=== PATIENT | male | born 1965 | race Caucasian/White ===

== ENCOUNTER 2020-01-14 20:46 | Emergency (ER) | payer BC, SELFPAY ==
[2020-01-14 21:15] VITALS: BP 129/91; PULSE 84; RESP 20; TEMP 36.8; O2SAT 97; BMI 20.2
--- NOTE | 2020-01-14 21:22 | HMH.EDUTC ---
[facility] [place] Clinical Impression: COVID-19 virus test result unknown Tick bite Qualifiers: Encounter type: initial encounter Qualified Code(s): W57.XXXA - Bitten or stung by nonvenomous insect and other nonvenomous arthropods, initial encounter Disposition: Home, Self-Care Condition on Discharge: Good Instructions: Preventing the Spread of Coronavirus Discharge Instructions, Protect Yourself from Tickborne Illnesses, How to Remove a Tick Prescriptions: Minocycline HCl [Minocycline HCl 100mg Tab*] 100 mg PO BID 14 Days #28 tab Prescription Printed Referrals: Yomi Ko MD [Primary Care Provider] - Time of Disposition: 21:37 Medical Decision Making - Jonathon Inquiry Pt receiving controlled substance: No Vital Signs: 01/14/20 21:15 Temperature 98.2 F Temperature Source Oral Pulse Rate [Right Brachial] 84 Respiratory Rate 20 Blood Pressure [Right Arm] 129/91 H Blood Pressure Mean [Right Arm] 103 Blood Pressure Source [Right Arm] Automatic Cuff Blood Pressure Position [Right Arm] Sitting 02 Sat by Pulse Oximetry 97 Oxygen Delivery Method Room Air Orders (Tests/Meds): ED MEDICATIONS Discontinued Medications Generic Name Dose Route Start Last Admin Trade Name Freq PRN Reason Stop Dose Admin Doxycycline Hyclate 100 mg 01/14/20 21:28 01/14/20 21:30 Vibra-Tab 100mg Tablet PO 01/14/20 21:29 100 mg ONCE ONE Administration Protocol Minocycline HCl 100 mg 01/14/20 21:23 01/14/20 21:29 Minocin 100mg Capsule PO 01/14/20 21:24 Not Given ONCE ONE Protocol ORDERS Category Date Time Status SARS-CoV-2, AMANDA Stat Lab 01/14/20 21:00 Received - Physician Consults Physician Consulted: mercedes Time: 21:35 Comment/Response: pt has tick bite and c/o fever, chills and body aches ok to start on antibiotics? and follow up in office this [place] [facility] [place] - General Chief complaint: [facility] Stated complaint: covid test/covid symptoms Time Seen by Provider: 01/14/20 21:22 Mode of Arrival: Ambulatory Source of Information: Patient Limitations: No Limitations Description of Symptoms (Recalled from Triage Doc. by RN): PATIENT REQUESTING COVID TEST. C/O BODY ACHES, LOW-GRADE FEVER, AND NAUSEA SINCE NATALIA. ALSO C/O TICK BITE TO LEFT LOWER LEG WITH SMALL AMOUNT OF REDNESS NOTED HEENT Symptoms (Recalled from RN notes): No Resp Symptoms (Recalled from RN notes): No Skin Symptoms (Recalled from RN notes): Yes MS Symptoms (Recalled from RN notes): No Functional Status (Recalled from RN notes): WNL - History of Present Illness Provider Complaint: 54 yr old male presnts for fever, body aches, chills,and pt states he has a tick bite since that started as a red raised area and now red with scab area. pt would like a covid test. pt states he was taking amoxicillin he had in left. - Related Data Previous Rx's Medication Instructions Recorded Minocycline HCl [Minocycline HCl 100 mg PO BID 14 Days #28 tab 01/14/20 100mg Tab*] Allergies Allergy/AdvReac Type Severity Reaction Status Date / Time No Known Allergies Allergy Verified 05/29/19 07:45 - Worker's Comp Is this a Worker's Comp case?: No [facility] History - Hepatitis A Screen Drug use history?: No High risk sexual behaviors?: No History of sexually transmitted infection?: No Currently employed?: No Childcare worker?: No Do you have indoor plumbing?: Yes Do you have electricity?: Yes Attestation statement:: This patient has been screened for Hepatitis A risk factors. I have reviewed the patient's past medical history: Yes Medical History: Denies:: Cancer, Diabetes Mellitus Type 1, Diabetes Mellitus Type 2, Internal Pacemaker, MRSA, Seizures Other Surgeries: No: Pacemaker Amputation: No Fractures: No - Social History Alcohol Intake: current Substance Use Type: denies use Occupational Status: other Housing: house Household Members: spouse Family Hx:: Hyperlipidemia, Hypertensi
[2020-01-14 21:44] VITALS: BP 129/91; PULSE 84; RESP 20; TEMP 36.8; O2SAT 97
[2020-01-16 14:19] LABS: Covid-19 Nasal PCR Sendout Lex Not Detected
== END 2020-01-14 21:44 | disposition home or self-care (01) ==
PROVIDERS: Emergency Provider Nurse Practitioner Family; PCP Family Medicine
DX: S80.862A Insect bite (nonvenomous), left lower leg, initial encounter (principal); W57.XXXA Bitten or stung by nonvenomous insect and other nonvenomous arthropods, initial encounter; Z20.828 Contact with and (suspected) exposure to other viral communicable diseases
CPT/HCPCS: 99201; U0004

== ENCOUNTER → 2020-02-01 11:16 | Outpatient (POV) | payer BC, SELFPAY | PROVIDERS: Visit Provider Audiologist | DX: Z00.00 Encounter for general adult medical examination without abnormal findings (principal) ==

== ENCOUNTER → 2020-04-12 12:40 | Outpatient (CLI) | payer BC, SELFPAY ==
[2020-04-12 12:49] LABS: MANUAL DIFFERENTIAL MANUAL DIFFERENTIAL (MANUAL DIFF)
[2020-04-12 13:03] LABS: Basophils # 0.1 K/mm3 (0-0.2); Basophils % 0.2 % (0.1-2.0); Eosinophils # 0.1 K/mm3 (0.0-0.4); Eosinophils % 0.3 % (0.1-12.0); Hematocrit 44.3 % (42.0-52.0); Lymphocytes # 1.4 K/mm3 (0.7-4.5); Lymphocytes % 3.6 % (10-50); Mean Corpuscular HGB Conc 31.7 g/dL (31.8-35.4); Mean Corpuscular Hemoglobin 29.5 pg (27.0-31.2); Mean Corpuscular Volume 93.2 fl (80-94); Mean Platelet Volume 7.4 fl (7.4-10.4); Monocytes # 0.7 K/mm3 (0.1-1.0); Monocytes % 1.9 % (1.7-9.3); Neutrophils # 36.8 K/mm3 (1.8-7.8); Platelet Count 331 K/mm3 (142-424); Red Blood Count 4.75 M/mm3 (4.60-6.20); Red Cell Distribution Width 12.8 % (11.5-17.5); White Blood Count 39.1 K/mm3 (4.8-10.8)
[2020-04-12 13:08] LABS: Lymphocytes % 7 % (10-50); Neutrophils % 92 % (42-76); Total Cells Counted 100
[2020-04-12 13:09] LABS: Giant Platelets 1+; Platelet Estimate Normal; RBC Morphology Normal
[2020-04-14 12:48] LABS: Peripheral Smear Review Scanned Result
== END ==
LOC: LAB 12:41 → LAB.DROPOF 12:44
PROVIDERS: Visit Provider Family Medicine
DX: D72.829 Elevated white blood cell count, unspecified (principal)
CPT/HCPCS: 85007; 85014; 85018; 85048; 85049

== ENCOUNTER → 2022-02-04 09:20 | Outpatient (CLI) | payer BC, SELFPAY ==
--- NOTE | 2022-02-04 | US_ITS ---
FINAL REPORT CLINICAL HISTORY: RUQ PAIN FINDINGS: ULTRASOUND RIGHT UPPER QUADRANT Sonographic imaging of the right upper quadrant was obtained. The pancreas is partially obscured. There is a small relatively hyperechoic focus in the left lobe of the liver measuring less than 1 cm may represent a small hemangioma. There is a minimal amount of sludge within the gallbladder with no evidence of gallstones. There is no gallbladder wall thickening. There is no biliary ductal dilatation. The common duct is normal at 2 mm. Limited images of the right kidney are unremarkable. IMPRESSION: Hyperechoic focus in the left liver lobe may represent a small hemangioma. Reviewed, Interpreted and Dictated by Lyle Fulton MD Transcribed by Rica Cantor Authenticated and [facility]
== END ==
PROVIDERS: PCP Family Medicine; Visit Provider Family Medicine
DX: R10.11 Right upper quadrant pain (principal)
CPT/HCPCS: 76705

== ENCOUNTER → 2022-02-13 10:16 | Outpatient (CLI) | payer BC, SELFPAY ==
--- NOTE | 2022-02-13 10:20 | NM_ITS ---
FINAL REPORT TECHNIQUE: The patient was injected with 8.15 mCi of technetium 99m Choletec subsequently Ensure was ingested. Images of the abdomen were obtained for one hour. CLINICAL HISTORY: GALLBLADDER SLUDGE rt side abd pain x 1 month with swelling 10:35 am 8.15 mci tc choletec injected into lt ant pt drank a ensure and was imaged for a hour afterwards FINDINGS: Hepatic uptake is normal. There is bile duct and small bowel activity at 5 minutes. The gallbladder is visualized at 20 minutes. Post Ensure images render an ejection fraction of 37 %. IMPRESSION: Normal hepatobiliary scan. Normal ejection fraction. Reviewed, Interpreted and Dictated by Jacinto Saravia III, MD Transcribed by Juaquin Mayer Authenticated and [facility]
== END ==
PROVIDERS: PCP Family Medicine; Visit Provider Family Medicine
DX: R10.9 Unspecified abdominal pain (principal); K82.8 Other specified diseases of gallbladder
CPT/HCPCS: 78226; A9537

== ENCOUNTER → 2022-02-26 11:06 | Outpatient (CLI) | payer BC, SELFPAY ==
[2022-02-26 11:18] LABS: MANUAL DIFFERENTIAL MANUAL DIFFERENTIAL (MANUAL DIFF)
[2022-02-26 11:41] LABS: Basophils # 0.1 K/mm3 (0-0.2); Basophils % 1.1 % (0.1-2.0); Eosinophils # 0.1 K/mm3 (0.0-0.4); Eosinophils % 1.6 % (0.1-12.0); Hematocrit 43.9 % (42.0-52.0); Hemoglobin 14.3 g/dL (14.1-18.0); Lymphocytes # 1.8 K/mm3 (0.7-4.5); Lymphocytes % 33.1 % (10-50); Mean Corpuscular HGB Conc 32.5 g/dL (31.8-35.4); Mean Corpuscular Volume 95.5 fl (80-94); Mean Platelet Volume 7.8 fl (7.4-10.4); Monocytes # 0.5 K/mm3 (0.1-1.0); Monocytes % 8.4 % (1.7-9.3); Neutrophils % 55.8 % (37.0-80.0); Platelet Count 303 K/mm3 (142-424); Red Cell Distribution Width 13.2 % (11.5-17.5); White Blood Count 5.4 K/mm3 (4.8-10.8)
[2022-02-26 12:23] LABS: Chloride 103 mmol/L (98-107)
[2022-02-26 12:24] LABS: Potassium 4.9 mmoL/L (3.5-5.1); Sodium 140 mmol/L (136-145)
[2022-02-26 12:26] LABS: Alanine Aminotransferase 20 U/L (12-78); Alkaline Phosphatase 134 U/L (38-126); Amylase 100 U/L (30-110); Anion Gap 12.9 mEq/L (5-15); Aspartate Amino Transferase 28 U/L (17-59); Bilirubin,Total < 0.1 mg/dl (0.2-1.3); Blood Urea Nitrogen 17 mg/dl (9-20); Carbon Dioxide 29 mmol/L (22.0-30.0); Estimated Glomerular Filt Rate 88 ml/min (>60); GFR (African American) 106 ML/MIN (>60)
[2022-02-26 12:27] LABS: Albumin Level 4.5 g/dl (3.5-5.0); Albumin/Globulin Ratio 1.5 (1.1-1.8); Calcium 9.3 mg/dl (8.4-10.2); Glucose 94 mg/dl (74-100); Lipase 119 U/L (23-300); Total Protein,Serum 7.5 g/dl (6.3-8.2)
[2022-02-26 12:45] LABS: Lymphocytes % 38 % (10-50); Monocytes % 8 % (2-9); Neutrophils % 54 % (42-76); Platelet Estimate Normal; RBC Morphology Normal; Total Cells Counted 100
== END ==
PROVIDERS: PCP Family Medicine; Visit Provider Surgery
DX: R10.9 Unspecified abdominal pain (principal)
CPT/HCPCS: 36415; 80053; 82150; 83690; 85007; 85014; 85018; 85048; 85049

== ENCOUNTER → 2022-03-03 10:23 | Outpatient (CLI) | payer BC, SELFPAY ==
--- NOTE | 2022-03-03 10:24 | CT_ITS ---
FINAL REPORT CLINICAL HISTORY: Abdominal pain FINDINGS: Technique: The patient was injected with intravenous contrast. Oral contrast was administered. Axial images through the abdomen and pelvis were performed. This study was performed with techniques to keep radiation doses as low as reasonably achievable (ALARA). Individualized dose reduction techniques using automated exposure control or adjustment of mA and/or kV according to the patient's size were employed. Abdomen: The lung bases are clear. The liver is normal in size and attenuation. The gallbladder is present. There are calcified granulomas in the spleen. The adrenals are normal. The pancreas is unremarkable. The kidneys enhance appropriately. The aorta is normal in caliber. There is no free fluid or adenopathy. Pelvis: The appendix is normal. The urinary bladder is unremarkable. There is no free fluid or adenopathy. IMPRESSION: No acute intra-abdominal or intrapelvic abnormality. Reviewed, Interpreted and Dictated by Lyle Fulton MD Transcribed by Rica Cantor Authenticated and [facility]
== END ==
PROVIDERS: PCP Family Medicine; Visit Provider Surgery
DX: R10.9 Unspecified abdominal pain (principal)
CPT/HCPCS: 74177; Q9967

== ENCOUNTER → 2022-03-11 10:39 | Outpatient (CLI) | payer BC, SELFPAY | PROVIDERS: PCP Family Medicine; Visit Provider Surgery | DX: Z01.812 Encounter for preprocedural laboratory examination (principal); Z20.822 Contact with and (suspected) exposure to COVID-19; Z13.810 Encounter for screening for upper gastrointestinal disorder | CPT/HCPCS: C9803; U0003; U0005 ==

== ENCOUNTER 2022-03-13 12:30 | Day surgery (SDC) | payer BC, SELFPAY ==
[2022-03-11 10:28] VITALS: BMI 20.9
[2022-03-13 12:54] VITALS: BP 137/79; PULSE 59; RESP 18; TEMP 36.6; O2SAT 99
--- NOTE | 2022-03-13 13:56 | EXP.ANES.CKL ---
[facility] Medical History No significant past medical history Surgical History No significant past surgical history Family History Other No significant family history Social History Smoking Status: Never smoker alcohol intake: current substance use type: denies use current occupational status: other Travel in the last 8 weeks: None household members: spouse housing: house current occupational exposures/hazards: Yes caffeine: No [facility] Anesthesia Checklist Patient Identification Patient Identification: Arm Band Structural Data Admitted From: Home Planned Operative Procedure/s: EGD Consent for Planned Operative Procedure(s) Verified: Yes Verified Documents: Surgical Consent and History and Physical NPO Status Verified Time NPO: 00:00 Additional verifications Anesthesia Reactions: No Airway Assessment C-Spine Mobility Assessed: Yes TMJ Mobility Assessed: Yes Dentition: Good Dentition Neurological Assessment Level of Consciousness: Awake and Alert Anesthesia Plan Anesthesia Risk discussed: Yes Anesthesia Plan: Verified ASA Class: I Anesthesia Type: MAC
[2022-03-13 14:06] VITALS: O2SAT 99
--- NOTE | 2022-03-13 14:19 | HMH.SCOPE ---
Procedure: Date: 03/13/22 Patient Date of :: 1965 Procedure Performed:: Esophagogastroduodenoscopy with biopsies Indications:: Patient presents for EGD. Patient is a pleasant 56-year-old male originally referred by Dr. Yomi Ko for possible gallbladder and seen in the office initially on 02/26/2022. He describes symptoms of mild right upper quadrant discomfort consistent with annoyance for duration of a couple of months. He had some abdominal distention and bloating. He was seen in his primary care provider's office and was found to have some right upper quadrant tenderness. He does state that this may be somewhat related to eating although he has been watching his diet and still does have some symptoms. He states that he often goes several days without any symptoms. He underwent gallbladder ultrasound on 01/31/2022 which was unremarkable for gallstones but revealed a hyperechoic focus in the left lobe of the liver which is felt to be possibly a small hemangioma. He had a HIDA scan performed on 02/13/2022 which reveals normal hepatobiliary scan with normal ejection fraction of 37%. This was done without CCK but with ingestion of Ensure. He states that the symptoms sometimes occur after drinking coffee in the morning. However, they are often relieved with eating. They are sporadic. Due to the equivocal findings on his gallbladder work-up and somewhat atypical symptoms I had him undergo CT scan which was negative for any acute pathology. I also had him undergo blood work including CBC, CMP, amylase, lipase. This is all unremarkable. Given his atypical symptoms I would not pursue gallbladder immediately.? It is possible HIDA scan with CCK could be completely normal.? Often his symptoms are actually relieved with eating.? He may have upper GI pathology.? Therefore plan was made for EGD with biopsies initially.? If this is all unremarkable then the gallbladder may be reconsidered. Performing Provider:: Jacinto Austin MD Referring Provider:: Yomi Ko MD Sedation:: MAC sedation Procedure:: Patient history was obtained and appropriate physical examination was performed. Patient's medications and allergies were reviewed. Informed consent was obtained after explaining the benefits, alternatives, and risks of the procedure including, but not limited to, bleeding, perforation, missed lesions, and adverse reaction to anesthesia medications. Patient was transported to endoscopy procedure room. Patient was connected to monitoring devices. Throughout the procedure the patient's blood pressure, pulse, and oxygen saturations were monitored continuously. Patient identification and planned procedure were verified by the staff. Olympus endoscope was inserted via the oropharynx. Esophagus was cannulated. Overall esophagus appeared normal. Gastroesophageal junction was encountered at approximately 40 cm from the incisors. There were findings possibly consistent with Handy's esophagus focally at the gastroesophageal junction. Stomach was cannulated and insufflated. Retroflexion revealed no evidence of any appreciable hiatal hernia. There was some mild diffuse nonerosive gastritis. Gastric biopsy was obtained. The pylorus was traversed. Duodenal bulb and duodenal sweep appeared unremarkable. Biopsy was obtained within the duodenal bulb. Endoscope was withdrawn to the distal esophagus and several biopsies were obtained at the gastroesophageal junction to evaluate for Handy's esophagus. Stomach was desufflated and the endoscope was withdrawn. Findings:: Gastroesophageal junction at 40 cm Possible focal very short segment of Handy's esophagus at gastroesophageal junction Very mild diffuse nonerosive gastritis, biopsied Normal appearing duodenal bulb, biopsied Recommendations:: Plan to follow-up on histopathology. To treat if necessary. However, given the relatively unremarkable appearance on upper endoscopy consideration
[2022-03-13 14:20] VITALS: BP 95/61; PULSE 56; RESP 16; TEMP 36.3; O2SAT 96
[2022-03-13 14:30] VITALS: BP 113/79; PULSE 59; RESP 16; O2SAT 99
[2022-03-13 14:40] VITALS: BP 122/79; PULSE 60; RESP 16; O2SAT 100
[2022-03-13 14:50] VITALS: BP 136/88; PULSE 58; RESP 16; O2SAT 100
== END 2022-03-13 14:50 | disposition home or self-care (01) ==
PROVIDERS: PCP Family Medicine; Visit Provider Surgery
PROC: 0DJ08ZZ Inspection of Upper Intestinal Tract, Via Natural or Artificial Opening Endoscopic (ICD-10-PCS; CPT 43235; principal; 2022-03-13 13:30)
DX: R10.11 Right upper quadrant pain (principal); K29.70 Gastritis, unspecified, without bleeding
CPT/HCPCS: 43239; 88305

== ENCOUNTER → 2022-03-16 15:29 | Outpatient (CLI) | payer BC, SELFPAY ==
--- NOTE | 2022-03-16 15:39 | ECG_ITS ---
APPROVED REPORT Exam: Resting ECG HR:62 bpm ECG Measurements Heart Rate 62 AXES WI 127 P 69 QRSd 116 QRS 73 QT 396 T 57 QTc 400 Conclusion SINUS RHYTHM INCOMPLETE RIGHT BUNDLE BRANCH BLOCK [90+ ms QRS DURATION, TERMINAL R IN V1/V2, 40+ ms S IN I/aVL/V4/V5/V6] POSSIBLE LEFT VENTRICULAR HYPERTROPHY [VOLTAGE CRITERIA PLUS LAE OR QRS WIDENING] ABNORMAL ECG UNCONFIRMED REPORT Electronically signed by : Aly Selby MD 03/16/2022 20:04:51
[2022-03-16 16:32] LABS: Basophils # 0.1 K/mm3 (0-0.2); Basophils % 1.7 % (0.1-2.0); Eosinophils # 0.1 K/mm3 (0.0-0.4); Eosinophils % 1.2 % (0.1-12.0); Hematocrit 44.1 % (42.0-52.0); Hemoglobin 14.8 g/dL (14.1-18.0); Lymphocytes % 31.2 % (10-50); Mean Corpuscular HGB Conc 33.6 g/dL (31.8-35.4); Mean Corpuscular Hemoglobin 31.8 pg (27.0-31.2); Mean Corpuscular Volume 94.4 fl (80-94); Mean Platelet Volume 7.9 fl (7.4-10.4); Monocytes # 0.6 K/mm3 (0.1-1.0); Monocytes % 9.4 % (1.7-9.3); Neutrophils # 3.7 K/mm3 (1.8-7.8); Neutrophils % 56.6 % (37.0-80.0); Platelet Count 310 K/mm3 (142-424); Red Blood Count 4.68 M/mm3 (4.60-6.20); Red Cell Distribution Width 13.2 % (11.5-17.5); White Blood Count 6.5 K/mm3 (4.8-10.8)
[2022-03-16 17:16] LABS: D-Dimer 0.33 ug/mL (0.0-0.5)
[2022-03-16 17:37] LABS: Chloride 98 mmol/L (98-107); Potassium 4.4 mmoL/L (3.5-5.1); Sodium 139 mmol/L (136-145)
[2022-03-16 17:40] LABS: Alanine Aminotransferase 23 U/L (12-78); Albumin Level 4.6 g/dl (3.5-5.0); Albumin/Globulin Ratio 1.5 (1.1-1.8); Alkaline Phosphatase 108 U/L (38-126); Anion Gap 13.4 mEq/L (5-15); Aspartate Amino Transferase 33 U/L (17-59); Blood Urea Nitrogen 14 mg/dl (9-20); Calcium 9.5 mg/dl (8.4-10.2); Carbon Dioxide 32 mmol/L (22.0-30.0); Estimated Glomerular Filt Rate 88 ml/min (>60); GFR (African American) 106 ML/MIN (>60); Glucose 95 mg/dl (74-100); Total Protein,Serum 7.6 g/dl (6.3-8.2)
[2022-03-16 17:41] LABS: Bilirubin,Total 0.1 mg/dl (0.2-1.3)
[2022-03-16 17:45] LABS: NT Pro Brain Natriuretic Pep. 32.6 pg/mL (0-125)
[2022-03-16 17:49] LABS: Troponin I < 0.01 ng/ml (0.00-0.034)
== END ==
PROVIDERS: PCP Family Medicine; Visit Provider Family Medicine
DX: R06.02 Shortness of breath (principal); R10.11 Right upper quadrant pain
CPT/HCPCS: 36415; 80053; 83880; 84484; 85025; 85378; 93005

== ENCOUNTER → 2022-06-16 11:31 | Outpatient (CLI) | payer BC, SELFPAY ==
[2022-06-16 14:04] LABS: Alanine Aminotransferase 32 U/L (12-78); Albumin Level 4.8 g/dl (3.5-5.0); Albumin/Globulin Ratio 1.7 (1.1-1.8); Alkaline Phosphatase 112 U/L (38-126); Anion Gap 15.2 mEq/L (5-15); Aspartate Amino Transferase 32 U/L (17-59); Bilirubin,Total 0.5 mg/dl (0.2-1.3); Blood Urea Nitrogen 27 mg/dl (9-20); Calcium 9.4 mg/dl (8.4-10.2); Carbon Dioxide 26 mmol/L (22.0-30.0); Chloride 102 mmol/L (98-107); Estimated Glomerular Filt Rate 78 ml/min (>60); GFR (African American) 94 ML/MIN (>60); Globulin 2.9 g/dL (1.3-3.2); Glucose 85 mg/dl (74-100); Potassium 4.2 mmoL/L (3.5-5.1); Sodium 139 mmol/L (136-145); Total Protein,Serum 7.7 g/dl (6.3-8.2)
[2022-06-16 14:24] LABS: Free Thyroxine Index 2.7 ug/dL (5.93-13.13); T4 (Thyroxine) 7.6 ug/dl (5.53-11.0); Triiodothryronine (T3) Uptake 35 % (23.5-40.5)
[2022-06-16 14:37] LABS: Thyroid Stimulating Hormone 1.42 uIU/mL (0.465-4.68)
[2022-06-17 17:22] LABS: Calcium, Ionized 5.6 mg/dL (4.5-5.6)
[2022-06-21 06:43] LABS: Testosterone,Free 13.2 pg/mL (7.2-24.0)
[2022-06-23 23:43] LABS: 1,25 Dihydroxy Vitamin D 87 pg/mL (.); 1,25-Dihydroxy, Vitamin D-2 <10 pg/mL (.); 1,25-Dihydroxy, Vitamin D-3 86 pg/mL (.)
[2022-06-24 23:06] LABS: PTH Related Peptide < 2.0
== END ==
PROVIDERS: PCP Family Medicine; Visit Provider Surgery
DX: R10.11 Right upper quadrant pain (principal); E67.3 Hypervitaminosis D; R53.83 Other fatigue
CPT/HCPCS: 36415; 80053; 82330; 82397; 82652; 84402; 84403; 84436; 84443; 84479

== ENCOUNTER → 2022-06-25 10:23 | Outpatient (CLI) | payer BC, SELFPAY ==
--- NOTE | 2022-06-25 10:32 | NM_ITS ---
FINAL REPORT CLINICAL HISTORY: Right upper quad pain 10:40 am 7.90 mci tc myoview 11:50 am 1.4 mcg of cck injected into lt ant no pain during cck 02/04/22 neg gb u/s FINDINGS: Sequential anterior projection images of the abdomen were obtained after the intravenous injection of 7.90 mCi technetium 99m Choletec. There is normal uptake of radiotracer by the liver. The bile ducts are visualized by 5 minutes. Gallbladder activity is seen by 35 minutes. Bowel activity is noted by 5 minutes. After 1 hour, 1.4 ?g of CCK was injected intravenously for calculation of gallbladder ejection fraction. The gallbladder ejection fraction is 68 %, which is within normal limits. IMPRESSION: No evidence of cystic duct or bile duct obstruction. Normal gallbladder ejection fraction of 68 %. Reviewed, Interpreted and Dictated by Jacinto Saravia III, MD Transcribed by Sara Coto Authenticated and [facility]
== END ==
PROVIDERS: PCP Family Medicine; Visit Provider Surgery
DX: R10.11 Right upper quadrant pain (principal)
CPT/HCPCS: 78227; A9537; J2805

== ENCOUNTER → 2022-10-24 09:30 | Outpatient (CLI) | payer BC, SELFPAY ==
[2022-10-28 15:10] LABS: Pancreatic Elastase, Fecal 185 (>200)
== END ==
PROVIDERS: PCP Family Medicine; Visit Provider Nurse Practitioner Family
DX: R10.11 Right upper quadrant pain (principal); R14.3 Flatulence
CPT/HCPCS: 82656

== ENCOUNTER 2022-10-28 16:05 | Emergency (ER) | payer OTHER, BC, SELFPAY ==
[2022-10-28 16:05] VITALS: BP 158/79; PULSE 70; RESP 18; TEMP 36.6; O2SAT 99; BMI 21.3
--- NOTE | 2022-10-28 17:02 | PC.NURSE ---
Dog bite for successfully faxed.
--- NOTE | 2022-10-28 17:12 | HMH.EDGENADL ---
Discharge Plan Disposition Patient Disposition: Home, Self-Care Condition: Good Prescriptions Prescriptions: New amoxicillin-pot clavulanate 875-125 mg tablet 1 tab PO BID Qty: 20 0RF mupirocin calcium 2 % cream 1 applic topical BID Qty: 30 0RF No Action famotidine [Pepcid] 40 mg tablet 40 mg PO DAILY Qty: 30 2RF Clinical Impressions Clinical Impression: Dog bite Instructions Patient Instructions: Animal Bites Print Language Print Language: Turkish Discharge ED Provider: Mele Nava General Adult HPI General Chief complaint: Animal Bite Stated complaint: dog bite Time Seen by Provider: 10/28/22 17:25 Mode of Arrival: Ambulatory Source of Information: Patient Limitations: No Limitations Description of Symptoms (Recalled from ER Triage Doc. by RN): Patient states that he was bit by a dog on his left forearm. History of Present Illness HPI narrative: Patient presents to the emergency department with dog bite to his left forearm. The patient states that he was visiting a family for his job when a great Jose bit his left forearm. He states his last tetanus shot was greater than 5 years ago. He states that the dog's immunizations are up-to-date. He denies any other injuries. Related Data Previous Rx's Medication Instructions Recorded famotidine 40 mg tablet (Pepcid) 40 mg PO DAILY #30 tabs 03/24/22 amoxicillin 875 mg-potassium 1 tab PO BID #20 tabs 10/28/22 clavulanate 125 mg tablet mupirocin calcium 2 % topical cream 1 applic topical BID #30 grams 10/28/22 Allergies Allergy/AdvReac Type Severity Reaction Status Date / Time No Known Allergies Allergy Verified 06/30/22 15:17 [facility] Disclaimer: The information contained in this section may have been updated after the patient was seen, as this information can be updated by other users. Medical History No significant past medical history Surgical History History of esophagogastroduodenoscopy (EGD) No significant past surgical history Family History Other No significant family history Social History Smoking Status: Never smoker alcohol intake: current substance use type: denies use current occupational status: other Travel in the last 8 weeks: None household members: spouse housing: house current occupational exposures/hazards: Yes caffeine: No ROS Obtained: Yes All systems reviewed & no additional complaints except as documented Musculoskeletal Musculoskeletal: Reports other (Laceration) Physical Exam General General appearance: alert and in no apparent distress Head Head exam: atraumatic and normocephalic Eye Eye exam: Present normal appearance, PERRL and EOMI Respiratory Respiratory exam: Present normal lung sounds bilaterally Cardiovascular Cardiovascular exam: Present regular rate and normal rhythm Abdominal Exam Abdominal exam: Present soft and normal bowel sounds Extremities Exam Extremities exam: Present other (Patient has a 3 cm laceration on the left forearm just distal to the elbow. There is a puncture wound on the dorsal aspect of the left forearm.) Neurological Exam Neurological exam: Present alert, oriented X3 and CN II-XII intact Medical Decision Making Jonathon Inquiry Pt receiving controlled substance: No Vital Signs: 10/28/22 16:05 Temperature 97.8 F Temperature Source Oral Pulse Rate [Right Radial] 70 Respiratory Rate 18 Blood Pressure [Right Arm] 158/79 H Blood Pressure Mean [Right Arm] 105 Blood Pressure Source [Right Arm] Automatic Cuff Blood Pressure Position [Right Arm] Sitting 02 Sat by Pulse Oximetry 99 Oxygen Delivery Method Room Air Orders (Tests/Meds): ED MEDICATIONS Discontinued Medications Generic Name Dose Rout
[2022-10-28 17:37] VITALS: BP 144/78; PULSE 79; RESP 20; TEMP 36.6; O2SAT 98
== END 2022-10-28 17:38 | disposition home or self-care (01) ==
PROVIDERS: Emergency Provider Emergency Medicine; PCP Family Medicine
DX: S51.852A Open bite of left forearm, initial encounter (principal); W54.0XXA Bitten by dog, initial encounter; Z23 Encounter for immunization
CPT/HCPCS: 12002; 90714; 96372; 99283; 99284

== ENCOUNTER 2023-06-03 08:30 | Emergency (ER) | payer BC, SELFPAY ==
[2023-06-03 09:15] VITALS: BP 115/79; PULSE 76; RESP 20; TEMP 37.3; O2SAT 98; BMI 20.2
--- NOTE | 2023-06-03 09:22 | EXP.UTC ---
Discharge Plan Disposition Patient Disposition: Home, Self-Care Condition: Good Prescriptions Prescriptions: New benzonatate [benzonatate] 100 mg capsule 100 mg PO TIDP PRN (Reason: Cough) Qty: 30 0RF oseltamivir [Tamiflu] 75 mg capsule 75 mg PO BID Qty: 10 0RF Referrals Follow up/Referrals: Yomi Ko MD [Primary Care Provider] - See instructions Activity Restrictions/Add. Instructions Additional Instructions/Restrictions: Drink plenty of fluids. Take tylenol or ibuprofen for pain or fever. Take the medications as directed. Follow up with your regular doctor. GO TO THE ER FOR ANY WORSENING SYMPTOMS Clinical Impressions Clinical Impression: Influenza A Instructions Patient Instructions: DI for Influenza -- Adult, Oseltamivir Discharge ED Provider: Reji Galicia [facility] General Stated complaint: cough,headache,congestion,runny nose Time Seen by Provider: 06/03/23 09:21 History of Present Illness Provider Complaint: He states that since yesterday he has had low grade fever, chills, body aches and malaise. He has a cough but denies shortness of breath and significant cough. Related Data Previous Rx's Medication Instructions Recorded benzonatate 100 mg capsule 100 mg PO TIDP PRN Cough #30 caps 06/03/23 oseltamivir 75 mg capsule (Tamiflu) 75 mg PO BID #10 caps 06/03/23 Allergies Allergy/AdvReac Type Severity Reaction Status Date / Time No Known Allergies Allergy Verified 06/30/22 15:17 [facility] Disclaimer: The information contained in this section may have been updated after the patient was seen, as this information can be updated by other users. Medical History No significant past medical history Surgical History History of esophagogastroduodenoscopy (EGD) No significant past surgical history Family History Other No significant family history Social History Smoking Status: Never smoker alcohol intake: never substance use type: denies use current occupational status: employed and other Travel in the last 8 weeks: None household members: spouse housing: house current occupational exposures/hazards: Yes caffeine: No ROS Obtained: Yes All systems reviewed & no additional complaints except as documented Constitutional Constitutional: Reports chills and Reports fever(s) Eyes Eyes: Denies eye discharge ENT Ears, Nose, Mouth, and Throat: Reports as per HPI Cardiovascular Cardiovascular: Denies chest pain Respiratory Respiratory: Denies chest congestion and Reports cough Gastrointestinal Gastrointestingal: Reports nausea; Denies abdominal pain, constipation, cramping, diarrhea or vomiting Musculoskeletal Musculoskeletal: Denies arthralgias Integumentary/Breasts Skin/Breast: Denies rash Neurologic Neurologic: Denies paresthesias Physical Exam General General appearance: alert and in no apparent distress Head Head exam: atraumatic, normocephalic and normal inspection Eye Eye exam: Present normal appearance, PERRL and EOMI ENT ENT exam: Present normal exam, normal oropharynx, mucous membranes moist, TM's normal bilaterally and normal external ear exam Neck Neck exam: Present normal inspection, full ROM and trachea midline; Absent meningismus or lymphadenopathy Chest Chest inspection: Present normal inspection and symmetric chest wall rise; Absent tenderness Respiratory Respiratory exam: Present normal lung sounds bilaterally; Absent respiratory distress Cardiovascular Cardiovascular exam: Present regular rate and normal rhythm; Absent JVD Abdominal Exam Abdominal exam: Present soft and normal bowel sounds; Absent distention, tenderness or guarding Extremities Exam Extremities exam: Present normal inspection, full ROM and
[2023-06-03 09:52] LABS: UTC Influenza A Antigen Positive (Negative); UTC Influenza B Antigen Negative (Negative)
[2023-06-03 09:56] VITALS: BP 115/79; PULSE 76; RESP 20; TEMP 37.3; O2SAT 98
== END 2023-06-03 10:03 | disposition home or self-care (01) ==
PROVIDERS: Emergency Provider Nurse Practitioner Family; PCP Family Medicine
DX: J10.1 Influenza due to other identified influenza virus with other respiratory manifestations (principal); R51.9 Headache, unspecified; R05.9 Cough, unspecified; R09.81 Nasal congestion; M79.18 Myalgia, other site; R53.81 Other malaise; R11.0 Nausea
CPT/HCPCS: 87804; 99204; 99212; G0463

== ENCOUNTER 2023-12-26 08:22 | Emergency (ER) | payer BC, SELFPAY ==
[2023-12-26 08:33] VITALS: BP 147/74; PULSE 67; RESP 18; TEMP 37.1; O2SAT 100; BMI 20.2
--- NOTE | 2023-12-26 08:43 | ED_ITS ---
Discharge Plan Disposition Patient Disposition: Home, Self-Care Condition: Good Prescriptions Prescriptions: New mupirocin 2 % ointment 1 applic topical TID 7 Days Qty: 15 0RF amoxicillin-pot clavulanate 875-125 mg Tablet 1 tab PO Q12H Qty: 20 0RF No Action Creon 36,000-114,000- 180,000 unit capsule,delayed release(DR/EC) 1 cap PO AC Patient Comments: TAKE ONE CAPSULE BY MOUTH THREE TIMES DAILY with meals Referrals Follow up/Referrals: Katei Ko [Primary Care Provider] - See instructions Activity Restrictions/Add. Instructions Additional Instructions/Restrictions: Keep the wound clean and dry. Watch the wound for signs of worsening infection, such as worsening redness, swelling, drainage, fever. etc. Take tylenol or ibuprofen for pain. Follow up with your regular doctor. GO TO THE ER FOR ANY WORSENING SYMPTOMS OR CONCERNS. Clinical Impressions Clinical Impression: Cellulitis of left leg Instructions Patient Instructions: DI for Cellulitis -- Adult, DI for Abrasion, Amoxicillin and Clavulanic Acid, Mupirocin Discharge ED Provider: Reji Galicia [facility] General Stated complaint: possibly infected cut on cooley Time Seen by Provider: 12/26/23 08:48 History of Present Illness Provider Complaint: He states that 4 days ago he tripped over his dog and got a scratch on his left cooley area. Since then he has had worsening redness, warmth, and mild swelling around the wound. His tetanus immunization is up to date. Related Data Home Medications Medication Instructions Recorded Confirmed [id number] 1 cap PO AC 12/26/23 12/26/23 36,000-114,000-180,000 unit capsule,delay rel (Creon) Previous Rx's Medication Instructions Recorded amoxicillin 875 mg-potassium 1 tab PO Q12H #20 tabs 12/26/23 clavulanate 125 mg tablet mupirocin 2 % topical ointment 1 applic topical TID 7 days #15 12/26/23 grams Allergies Allergy/AdvReac Type Severity Reaction Status Date / Time No Known Allergies Allergy Verified 06/30/22 15:17 [facility] Disclaimer: The information contained in this section may have been updated after the patient was seen, as this information can be updated by other users. Medical History No significant past medical history Surgical History History of esophagogastroduodenoscopy (EGD) No significant past surgical history Family History Other No significant family history Social History Smoking Status: Never smoker alcohol intake: never substance use type: denies use current occupational status: employed and other Travel in the last 8 weeks: None household members: spouse housing: house current occupational exposures/hazards: Yes caffeine: No ROS Obtained: Yes All systems reviewed & no additional complaints except as documented Constitutional Constitutional: Denies chills and Denies fever(s) Eyes Eyes: Denies eye discharge ENT Ears, Nose, Mouth, and Throat: Denies dizziness, Denies otalgia and Denies sore throat Cardiovascular Cardiovascular: Denies chest pain Respiratory Respiratory: Denies shortness of breath, Denies chest congestion, Denies cough, Denies stridor and Denies wheezing Gastrointestinal Gastrointestingal: Denies nausea or vomiting Musculoskeletal Musculoskeletal: Reports system reviewed and no additional complaints, except as documented and Denies arthralgias Integumentary/Breasts Skin/Breast: Reports as per HPI and Reports redness Neurologic Neurologic: Denies dizziness and Denies paresthesias Allergic/Immunologic Allergic/Immunologic: Denies wheezing Physical Exam General General appearance: alert and in no apparent distress Head Head exam: atraumatic, normocephalic and normal inspection Eye Eye exam: Present normal appearance, PERRL and EOMI ENT ENT exam: Present normal exam, normal oropharynx, mucous membranes moist, TM's normal bilaterally and normal external ear exam Neck Neck exam: Present normal inspection, full ROM and trachea midline; Absent meningismus or lymphadenopathy Chest Chest inspection: Present normal inspection and symmetric chest wall rise; Absent tenderness Respiratory Respiratory exam: Present normal lung sounds bilaterally; Absent respiratory distress Cardiovascular Cardiovascular exam: Present regular rate and normal rhythm; Absent JVD Abdominal Exam Abdominal exam: Present soft and normal bowel sounds; Absent distention, tenderness or guarding Extremities Exam Extremities exam: Present normal inspection, full ROM and normal capillary refill; Absent calf tenderness Back Exam Back exam: Present normal inspection; Absent tenderness Neurological Exam Neurological exam: Present alert and oriented X3 Psychiatric Psychiatric exam: Present normal affect and normal mood Skin Skin exam: Present erythema (there is an area of erythema on the front of his left lower leg that measures 5 cm diameter. There is a superficial linear abrasion in its center. no drainage, no induration. ) Lymphatic Lymphatic Findings: no adenopathy Medical Decision Making Medical Records Medical records reviewed: No I reviewed the patient's medical records. Jonathon Inquiry Pt receiving controlled substance: No Orders (Tests/Meds): ED MEDICATIONS Generic Name Dose Route Start Last Admin Trade Name Freq PRN Reason Stop Dose Admin Ceftriaxone Sodium 1 gm 12/26/23 08:43 Ceftriaxone 1gm Vial IM 12/26/23 08:44 ONCE ONE Lidocaine HCl 0 ml 12/26/23 08:43 Lidocaine 1% 5ml Pf Vial IM 12/26/23 08:44 ONCE ONE
[2023-12-26] MEDS: cefTRIAXone 1GM VIAL 1 GM IM (09:05)
[2023-12-26] MEDS: LIDOCAINE 1% 5ML PF VIAL IM (09:06)
[2023-12-26 09:14] VITALS: BP 147/74; PULSE 67; RESP 18; TEMP 37.1; O2SAT 100
== END 2023-12-26 09:15 | disposition home or self-care (01) ==
PROVIDERS: Emergency Provider Nurse Practitioner Family; PCP Registered Nurse
DX: L03.116 Cellulitis of left lower limb (principal)
CPT/HCPCS: 96372; 99212; 99214; G0463; J0696

== ENCOUNTER 2023-12-30 10:56 | Outpatient (CLI) | payer SELFPAY ==
--- NOTE | 2023-12-30 11:01 | CT_ITS ---
APPROVED REPORT Home Health Nurse Licensed Practical: CLINICAL INDICATION Risk stratification TECHNIQUE Image Acquisition: A 128 slice MDCT scanner ([employer]a View) was used for data acquisition. A noncontrast coronary calcium scan was performed. A CT attenuation threshold of 130 Hounsfield units (HU) was used for the detection of calcium in contiguous voxels of 1 sq mm in area to be counted as individual lesions. A tube voltage of 120 KVp was used. The patient received no medications prior to the coronary calcium CT. Image Reconstruction Transaxial images were reconstructed at 0.67 mm slide thickness. Data was reviewed interactively on an advanced workstation capable of 2 and 3-dimensional displays in all conventional reconstruction formats, including multiplanar reformations, maximum intensity projections, curved multiplanar reformations, and volume rendered reconstructions. When applicable, selected routine images describing the relevant coronary anatomy and pathology were saved and sent to PACS. Complications None Technical Quality Overall image quality was good. Total DLP (Dose-Length Product) is 197.88 mGy-cm. The reported value represents the total of one or more individual components during the CT acquisition of this date and at this time, and as such, the same value may appear in more than one CT report depending on the interpreting/reporting physicians. COMPARISON None FINDINGS CT Coronary Calcium Scoring LMA (Left Main Artery) = 0 LAD (Left Anterior Descending) = 0 LCX (Left Coronary Circumflex) = 0 RCA (Right Coronary Artery) = 0 Total Calcium Score = 0 using the AJ-130 method. There is no identifiable calcification in the aortic valve, mitral annulus or mitral valve, pericardium, or myocardium. IMPRESSION -Coronary artery calcification is absent. -Total Calcium Score (Agatston Score) = 0 using the AJ-130 method. The interpretation of the calcium heart score is based on the following continuum*: 0 = no calcified plaque detected (risk of coronary artery disease is very low ??? less than 5%) 1-10 = calcium detected in extremely minimal levels (risk of coronary diseases is still low ??? less than 10%) 11-100 = mild levels of plaque detected with certainty (mild or minimal narrowing of heart arteries is likely) 101-400 = definite,at least moderate levels of plaque detected (relatively high risk of a heart attack within 3-5 years) >401-999 = extensive levels of plaque detected (high risk of heart attack, high levels of vascular disease are present, high likelihood of at least one significant coronary narrowing) *The calcium heart score quantifies the burden of coronary calcification/plaque in the coronary arteries. The calcium heart score does not evaluate the presence or the burden of non-calcified (i.e. soft) plaque. The coronary and cardiac findings of this Coronary Calcium CT were reviewed, reported, and signed by Sammy Rowe MD (Online Communications Manager). Conclusion Electronically signed by : Qian Rowe MD 01/02/2024 02:25:41
== END 2023-12-30 23:59 | disposition home or self-care (01) ==
PROVIDERS: PCP Family Medicine; Visit Provider Family Medicine
DX: Z82.49 Family history of ischemic heart disease and other diseases of the circulatory system (principal)
CPT/HCPCS: 75571

== ENCOUNTER 2024-07-05 11:32 | Day surgery (SDC) | payer BC, SELFPAY ==
[2024-07-03 14:35] VITALS: BMI 20.9
[2024-07-05 12:07] VITALS: BP 132/77; PULSE 67; RESP 18; TEMP 37.1; O2SAT 100
[2024-07-05] MEDS: LACTATED RINGERS 1000ML 1,000 ML 50 ML IV (12:20)
--- NOTE | 2024-07-05 12:35 | EXP.ANES.CKL ---
[facility] Disclaimer: The information contained in this section may have been updated after the patient was seen, as this information can be updated by other users. Medical History No significant past medical history Surgical History History of esophagogastroduodenoscopy (EGD) No significant past surgical history Family History (Updated 07/05/24 @ 12:11 by Eda Luna RN) Other Stroke Social History (Updated 07/05/24 @ 12:11 by Eda Luna RN) Smoking Status: Former smoker alcohol intake: never substance use type: denies use current occupational status: employed and other Travel in the last 8 weeks: Inside the [place] household members: spouse housing: house current occupational exposures/hazards: Yes caffeine: Yes Have you lived/traveled outside [place] in past 30 days?: No Contact w/someone who lives/traveled outside [place] past 30 days?: No Exposure to someone with infectious disease in past 14 days?: No Do you have a fever (greater than 100.4 F or 38 C)?: No Have you tested positive for COVID-19: No Exposed to someone with COVID-19 in past 14 days?: No Do you have a sore throat?: No Do you have a cough?: No Do you have any weakness?: No Are you experiencing any nausea/vomitting?: No Do you have any diarrhea?: No Are you experiencing any unusual bleeding?: No Do you have any muscle aches/pain?: No Do you have any abdominal pain?: No Are you experiencing loss of taste or smell?: No [facility] Anesthesia Checklist Patient Identification Patient Identification: Arm Band Structural Data Admitted From: Home Planned Operative Procedure/s: Colonoscopy Consent for Planned Operative Procedure(s) Verified: Yes Verified Documents: Surgical Consent and History and Physical NPO Status Verified Time NPO: 08:45 (finished prep) Additional verifications Anesthesia Reactions: No Airway Assessment Mallampati Score:: Class II C-Spine Mobility Assessed: Yes TMJ Mobility Assessed: Yes Dentition: Good Dentition Neurological Assessment Level of Consciousness: Awake, Alert and Appropriate Anesthesia Plan Anesthesia Risk discussed: Yes Anesthesia Plan: Verified ASA Class: II Anesthesia Type: MAC
[2024-07-05 13:09] VITALS: O2SAT 100
--- NOTE | 2024-07-05 13:26 | EXP.HP ---
History of Present Illness *Admission Date: 07/05/24 *Reason for visit:: Surveillance/personal history of adenomatous colon polyps *History of present illness: Mr. Winston is a 58-year-old gentleman who is here for follow-up surveillance colonoscopy secondary to a personal history of adenomatous colon polyps. The examination is deemed medically necessary for surveillance colonoscopy. The patient has been seen, interviewed and examined prior to the procedure by both myself and the anesthesia provider. [facility] Disclaimer: The information contained in this section may have been updated after the patient was seen, as this information can be updated by other users. Medical History No significant past medical history Surgical History History of esophagogastroduodenoscopy (EGD) No significant past surgical history Family History (Updated 07/05/24 @ 12:11 by Eda Luna RN) Other Stroke Social History (Updated 07/05/24 @ 12:11 by Eda Luna RN) Smoking Status: Former smoker alcohol intake: never substance use type: denies use current occupational status: employed and other Travel in the last 8 weeks: Inside the [place] household members: spouse housing: house current occupational exposures/hazards: Yes caffeine: Yes Have you lived/traveled outside [place] in past 30 days?: No Contact w/someone who lives/traveled outside [place] past 30 days?: No Exposure to someone with infectious disease in past 14 days?: No Do you have a fever (greater than 100.4 F or 38 C)?: No Have you tested positive for COVID-19: No Exposed to someone with COVID-19 in past 14 days?: No Do you have a sore throat?: No Do you have a cough?: No Do you have any weakness?: No Are you experiencing any nausea/vomitting?: No Do you have any diarrhea?: No Are you experiencing any unusual bleeding?: No Do you have any muscle aches/pain?: No Do you have any abdominal pain?: No Are you experiencing loss of taste or smell?: No Other Medical History Have you received the Flu Vaccine for this season: Yes Have you received the Pneumonia Vaccine: No Review of Systems Review of Systems Review of systems (narrative): Negative *Cardiovascular Comments: Negative *Gastrointestinal Comments: Negative *Genitourinary Comments: Negative *Musculoskeletal Comments: Negative *Neurologic Comments: Negative Meds Home Medications and Allergies Home Medications ?Medication ?Instructions ?Recorded ?Confirmed ?Type [id number] 1 cap PO AC #270 caps 05/09/24 07/05/24 Rx 36,000-114,000-180,000 unit capsule,delay rel (Creon) sod picosulf 10 mg-magnes 3.5 175 ml PO DAILY Bowel Prep 2 doses 06/23/24 07/03/24 Rx gram-citric 12 gram/175 mL oral #350 mL solution (Clenpiq) New Prescriptions to Start Prescriptions: Allergies Allergy/AdvReac Type Severity Reaction Status Date / Time No Known Allergies Allergy Verified 07/05/24 12:06 Exam Data for Last 24 hours Vital signs and Labs for Last 24 Hours: Temp Pulse Resp BP Pulse Ox O2 Del Method O2 Flow Rate 98.7 F 67 18 132/77 100 Nasal Cannula 6 07/05/24 12:07 07/05/24 12:07 07/05/24 12:07 07/05/24 12:07 07/05/24 12:07 07/05/24 13:09 07/05/24 13:09 I & O for Last 24 hours: Intake & Output 07/02/24 07/03/24 07/04/24 07/05/24 23:59 23:59 23:59 23:59 Weight 150 lb *Routine HEENT Exam Head: Present normocephalic Eye: Present EOMI and PERRL ENT: Present mucous membranes moist *Routine Neck Exam Neck: Present supple *Routine Respiratory Exam Respiratory: Present CTA bilaterally *Routine Cardiovascular Exam Cardiovascular: Present RRR *Routine Abdominal Exam Abdominal: Present soft and normoactive bowel sounds; Absent tenderness *Routine Rectal Exam Rectal:: deferred *Routine Genitalia Exam Genitalia:: deferred *Routine Extremities Exam Extremities: Absent cyanosis, clubbing or edema *Routine Skin Exam Skin: Present warm; Absent rash *Routine Neurological Exam Neurological: Present alert and oriented X3 Assessment and Plan *Assessment and plan (1) Personal history of adenomatous and serrated colon polyps: Status: Acute Category: Medical Code(s): Z86.0101 - Personal history of adenomatous and serrated colon polyps Plan A/P: 1. Personal history of adenomatous colon polyps is the preprocedural diagnosis. The patient will be anesthetized/sedated using MAC sedation. The patient has been seen and examined. Cardiac and lung assessment prior to the examination is stable. Proceed with planned surveillance colonoscopy
--- NOTE | 2024-07-05 13:28 | HMH.PROCNOTE ---
[facility] Procedure Note Date: 07/05/24 Time: 13:32 Procedure Note:: Colonoscopy Procedure Report: Colonoscopy with cold snare polypectomy Endoscopist: Abraham Boss II, MD Referring physician: Yomi Ko MD Date of Procedure: July 05, 2024 Equipment: Olympus 190 variable stiffness pediatric colonoscope Sedation: MAC sedation Indication: Mr. Winston is a 58-year-old gentleman who is here for follow-up surveillance colonoscopy. The patient did have a colonoscopy in May 2019 and had 2 polyps (tubular adenomas x 2) removed. He does have a history of EPI (exocrine pancreatic insufficiency with prior fecal elastase at 185. He is on Creon digestive enzyme supplement with his meals and has had resolution of symptoms. He reports no rectal bleeding, abdominal pain, weight loss or change in bowel habits. He reports no family history of colon cancer. Procedure: Prior to the procedure, a history and physical exam was performed, and patient's medications and allergies were reviewed. The risks, benefits and alternatives of the sedation and procedure were discussed with the patient. All questions were answered and informed consent was obtained. The patient was brought to the procedure room. Patient identification and proposed procedure were verified by the physician and the nurse. The patient was placed in a left lateral decubitus position and the scope was passed under direct vision. Throughout the procedure, the patient's blood pressure, pulse, and oxygen saturations were monitored continuously. The colonoscopy was accomplished without difficulty. The patient tolerated the procedure well. Findings: On digital rectal examination there was normal rectal tone. There were no external hemorrhoids. The colonoscope was introduced through the anal canal to the rectum and advanced to the cecum. The ileocecal valve and appendiceal orifice were identified. The scope was advanced a short distance into the ileum which appeared grossly normal. The scope was then withdrawn into the colon. The cecum, ascending and transverse colon and mucosa were grossly normal. There were mildly scattered diverticuli throughout the sigmoid colon (LEFT colon). There was a diminutive 3 to 4 mm polyp in the rectum removed via cold snare polypectomy. The rectum was otherwise normal. Upon retroflexion within the rectum there were grade 1-2 internal hemorrhoids. The preparation was excellent throughout with [place] Preparation Score of 9. The cecal time was 12 minutes. Impression: 1. Diminutive 3 to 4 mm rectal polyp 2. Mild sigmoid diverticulosis 3. Grade 1-2 internal hemorrhoids Plan: I will follow-up the polyp histology and recommend repeat surveillance colonoscopy again in 7 to 10 years based upon the pathology. I would encourage continuation of psyllium Konsyl fiber supplementation on a regular and daily basis and continue Creon.
[2024-07-05 13:32] VITALS: BP 99/61; PULSE 65; RESP 16; TEMP 36.2; O2SAT 97
[2024-07-05 13:42] VITALS: BP 104/56; PULSE 69; RESP 18; O2SAT 100
[2024-07-05 13:52] VITALS: BP 110/75; PULSE 66; RESP 18; O2SAT 99
[2024-07-05 14:02] VITALS: BP 102/83; PULSE 70; RESP 18; O2SAT 100
== END 2024-07-05 14:25 | disposition home or self-care (01) ==
PROVIDERS: PCP Family Medicine; Visit Provider Internal Medicine Gastroenterology
PROC: 0DJD8ZZ Inspection of Lower Intestinal Tract, Via Natural or Artificial Opening Endoscopic (ICD-10-PCS; CPT 45378; principal; 2024-07-05 12:30)
DX: Z12.11 Encounter for screening for malignant neoplasm of colon (principal); K63.5 Polyp of colon; K57.30 Diverticulosis of large intestine without perforation or abscess without bleeding; K64.8 Other hemorrhoids; Z86.0101 Personal history of adenomatous and serrated colon polyps
CPT/HCPCS: 45385; J7120